=== PATIENT | male | born 1950 | race Caucasian/White ===

== ENCOUNTER 2025-01-31 13:21 | Outpatient (RCR) | payer MEDICARE, SELFPAY | END 2025-01-31 23:59 | disposition home or self-care (01) | LOC: CRHB 13:21 | PROVIDERS: ATTENDING PHYSICIAN Internal Medicine Cardiovascular Disease | DX: Z95.2 Presence of prosthetic heart valve (principal) | CPT/HCPCS: G0422; G0423 ==

== ENCOUNTER 2025-03-02 10:35 | Outpatient (RCR) | payer MEDICARE, SELFPAY | END 2025-03-02 23:59 | disposition home or self-care (01) | LOC: CRHB 10:35 | PROVIDERS: ATTENDING PHYSICIAN Internal Medicine Cardiovascular Disease | DX: Z95.2 Presence of prosthetic heart valve (principal) | CPT/HCPCS: G0422; G0423 ==

== ENCOUNTER 2025-03-09 10:29 | Outpatient (RCR) | payer MEDICARE, SELFPAY | END 2025-03-09 23:59 | disposition home or self-care (01) | LOC: CRHB 10:29 | PROVIDERS: ATTENDING PHYSICIAN Internal Medicine Cardiovascular Disease | DX: Z95.2 Presence of prosthetic heart valve (principal) | CPT/HCPCS: G0422; G0423 ==

== ENCOUNTER → 2025-05-19 10:31 | Outpatient (REF) | payer MEDICARE, SELFPAY | LOC: RAD 10:31 | PROVIDERS: ATTENDING PHYSICIAN Internal Medicine Nephrology | DX: N28.1 Cyst of kidney, acquired (principal) | CPT/HCPCS: 74177; Q9967 ==

== ENCOUNTER 2025-05-20 08:16 | Emergency (ER) | payer MEDICARE, SELFPAY ==
[2025-05-20 08:22] VITALS: BP 136/91
[2025-05-20 08:40] LABS: Hematocrit 37.3 % (39.0-52.0); Hemoglobin 12.3 g/dL (13.0-18.0); Mean Corp Hgb Conc. 33.0 g/dL (33.0-37.0); Mean Corpuscular Volume 85.0 fL (80.0-94.0); Nucleated Red Blood Cells % 0 % (-); Platelet Count 202 10^3/uL (130-400); Red Cell Dist. Width 14.5 % (11.5-14.5)
[2025-05-20 08:53] LABS: ALT (SGPT) 15 U/L (0-50); AST (SGOT) 23 U/L (17-59); Albumin 4.0 g/dl (3.5-5.0); Alkaline Phosphatase 98 U/L (38-126); Blood Urea Nitrogen 30 mg/dl (9-20); Calcium 9.3 mg/dl (8.4-10.2); Carbon Dioxide 29 mmol/L (22-30); Chloride 106 mmol/L (98-107); Glucose 115 mg/dl (70-99); Potassium 4.7 mmol/L (3.5-5.1); Sodium 139 mmol/L (135-145); Total Protein 6.9 g/dl (6.3-8.2); eGFR 58.01
[2025-05-20 09:05] LABS: Troponin I < 0.012 ng/ml
--- NOTE | 2025-05-20 09:08 | ED.GENMED ---
History of Present Illness
General
Chief Complaint: Chest Pain
Source: patient
Exam Limitations: none
Time Seen by Provider: 05/20/25 08:39
History of Present Illness
History of Present Illness:
74-year-old male with history of colon cancer and mitral valve replacement not currently on blood thinners presents with 2 days worth of left-sided pleuritic chest discomfort. He also notes intermittent cramping of the right leg. He states that he
saw his neurologist and his neurologist recently changed his statin medication. No known injury. He denies a fever but does note chills. He denies abdominal pain. No other complaint
Phy Exam
Physical Exam
Physical Exam:
General: Well-appearing male no acute respiratory distress
HEENT normocephalic atraumatic
Heart: Regular rate and rhythm lungs: Clear no wheeze
Abdomen is soft nontender nondistended
Extremities: No cyanosis or edema
Scores
Heart Score for Chest Pain Patients
STEMI patient?: No
History: Slightly or Non-Suspicious
ECG: Normal
Age: >/= 65 years
Risk Factors: 1 or 2 Risk Factors
Troponin: </= Normal Limit
Heart Score for Chest Pain Patients: 3
Heart Score Risk: 2.5% MACE over next 6 weeks
Course
Orders/Labs/Results
Orders:
Orders
05/20/25 08:17
EKG [Electrocardiogram (*1)] Urgent
Reason for Study: Chest Pain
EKG- Treatment ONCE
05/20/25 08:31
Complete Blood Count/With Diff Urgent
Comprehensive Metabolic Panel Urgent
Troponin I Urgent
05/20/25 09:06
Venous Doppler Lwr Ext Rt [[facility] Venous LOWER Ext RT] Urgent
Comment:
Reason For Exam: pain
05/20/25 09:07
CT Chest PE Study Urgent
Comment:
Reason For Exam: left chest pain
05/20/25 12:45
Ketorolac [Toradol] 15 mg IV NOW STA
Abnormal Lab Results
05/20/25
08:31
RBC 4.39 L 10^6/uL
(4.70-6.10)
Hgb 12.3 L g/dL
(13.0-18.0)
Hct 37.3 L %
(39.0-52.0)
Absolute Monos (auto) 1.1 H 10^3/uL
(0.1-0.6)
Lymphocytes % 17.0 L %
(20.5-51.1)
Monocytes % 11.9 H %
(1.7-9.3)
BUN 30 H mg/dl
(9-20)
Glucose 115 H mg/dl
(70-99)
05/20/25 08:31
05/20/25 08:31
Vital Signs
Initial and Last Documented VS:
Initial Vital Signs
Temp Pulse Resp BP Pulse Ox
99 F 90 16 136/91 94
05/20/25 08:22 05/20/25 08:22 05/20/25 08:22 05/20/25 08:22 05/20/25 08:22
Last Documented Vital Signs
Temp Pulse Resp BP Pulse Ox
99 F 75 18 137/73 98
05/20/25 08:22 05/20/25 11:15 05/20/25 11:15 05/20/25 11:08 05/20/25 11:15
MDM/Problems Addressed
Differential Diagnosis Includes:
Pleuritic left chest discomfort. Consider PE versus pneumothorax versus costochondritis versus muscular strain of the chest wall. He is not at low risk given his history of cancer and mitral valve replacement. Will order PE study as well as
ultrasound of the right leg. EKG shows sinus rhythm ventricular hypertrophy
*Pulse Oximetry
SaO2: 94
Oxygen Mode of Delivery: Room air
Patient hypoxic: no
*Critical Care Note
Total Time (30-74mins, 75-104mins- exclusive of procedures): Not Applicable
Update Note
Update Note:
PE study negative for PE there is a new small pericardial effusion. Otherwise lungs are clear. Cardiac workup negative otherwise. Ultrasound of the leg is negative for DVT. No indication for admission but will advise he follow-up with cardiology
given the chest pain and new small pericardial effusion.
ED Attending Note
-
Portions of this chart may have been created with voice recognition software.� Occasional wrong word or��sound alike� substitutions may have occurred due to the inherent limitations of voice recognition software.
Discharge Plan
Departure
Patient Disposition: Home (Routine Discharge)
Date of Disposition: 05/20/25
Time of Disposition: 12:59
Patient with high blood pressure during this ER visit?: No
Discharge Problem:
Chest pain
Instructions: Chest Pain DCA Follow Up
Referrals:
UNKNOWN - PT DOES,NOT KNOW [Family Provider]
Activity Restrictions/Additional Instructions:
Use Tylenol as needed for pain. Please return here for worsening symptoms otherwise follow-up with cardiology
Interventions
Interventions:
*Risk Screen - Suicide Last Done: 05/20/25 08:22
*General Assessment Last Done: 05/20/25 09:16
*Neglect/Abuse Screening Last Done: 05/20/25 08:22
*ED- Fall Risk Assessment Last Done: 05/20/25 09:16
*ED COVID-19 Vaccine History Last Done: 05/20/25 09:16
ED- Cardiac Assessment Last Done: 05/20/25 09:34
Discharge Date and Time
Print Language: MACEDONIAN
[2025-05-20 09:15] VITALS: BMI 24.6
[2025-05-20 09:24] VITALS: BP 145/84
[2025-05-20 11:08] VITALS: BP 137/73
[2025-05-20 12:00] VITALS: BP 130/77
[2025-05-20 13:00] VITALS: BP 132/77
== END 2025-05-20 13:14 | disposition home or self-care (01) ==
LOC: EMR 08:16
PROVIDERS: EMERGENCY PHYSICIAN Emergency Medicine
DX: R07.89 Other chest pain (principal); I31.39 Other pericardial effusion (noninflammatory); M79.604 Pain in right leg; Z85.038 Personal history of other malignant neoplasm of large intestine; Z95.2 Presence of prosthetic heart valve
CPT/HCPCS: 99284; 71275; 80053; 84484; 85025; 93005; 93971; Q9967

== ENCOUNTER → 2025-07-03 08:04 | Outpatient (REF) | payer MEDICARE, SELFPAY | LOC: HWRCS 08:04 | PROVIDERS: ATTENDING PHYSICIAN Internal Medicine Cardiovascular Disease | DX: Z95.2 Presence of prosthetic heart valve (principal); R00.1 Bradycardia, unspecified; I10 Essential (primary) hypertension; E78.2 Mixed hyperlipidemia | CPT/HCPCS: 93306 ==

== ENCOUNTER 2025-07-24 06:20 | Day surgery (SDC) | payer MEDICARE, SELFPAY | END 2025-07-24 11:05 | disposition home or self-care (01) | LOC: GI 06:20 | PROVIDERS: ATTENDING PHYSICIAN Internal Medicine Gastroenterology; FAMILY PHYSICIAN Internal Medicine | DX: Z12.11 Encounter for screening for malignant neoplasm of colon (principal); K64.8 Other hemorrhoids; D50.9 Iron deficiency anemia, unspecified; K21.00 Gastro-esophageal reflux disease with esophagitis, without bleeding; Z85.038 Personal history of other malignant neoplasm of large intestine; Z98.0 Intestinal bypass and anastomosis status; Z98.890 Other specified postprocedural states | CPT/HCPCS: 43239; G0105; 88305 ==